=== PATIENT | female | born 1955 | race Caucasian/White ===

== ENCOUNTER 2017-10-07 12:04 | Emergency (ER) | payer MEDICARE, MEDICAID ==
[~2017-10-07] VITALS: Ht 170.2 cm; Wt 69.8 kg
[~2017-10-07 12:04] MED LIST: DIVA500T2 PO; GABA600T PO; ZOLP10TA PO
[2017-10-07 12:16] VITALS: BP 121/78
== END 2017-10-07 12:58 | disposition home or self-care (01) ==
LOC: ED 12:44
DX: K04.7 Periapical abscess without sinus (principal); J20.8 Acute bronchitis due to other specified organisms; B96.89 Other specified bacterial agents as the cause of diseases classified elsewhere; H92.02 Otalgia, left ear
CPT/HCPCS: 99283